=== PATIENT | male | born 1975 | race Caucasian/White ===

== ENCOUNTER 2016-03-13 10:03 | Emergency (ER) | payer OTHER ==
[2016-03-13] MEDS ORDERED: TORADOL PO ONE (10:33)
[2016-03-13 10:41] LABS: URINE CULTURE PL NEEDED? NO; URINE SOURCE VOIDED
--- NOTE | 2016-03-13 10:42 | PROVIDER DOCUMENTATION ---
HPI-Psychological Disorder - General Source: patient - History of Present Illness-Psych Onset/Duration: reports: unsure Timing: reports: still present, constant Severity: reports: moderate Situational problems related to:: reports: other Psychiatric Complaints: reports: angry, depressed, suicidal ideation Previous psych related hospitalizations?: Yes Patient arrived by:: private car Similar Symptoms Previously?: Yes Recently seen or treated by another doctor?: No - Suicidal Ideation Suicide Risk Assessment: depressed, prior attempt, organized plan, chronic illness Suicidal Attempt Method: reports: Other (run out of in traffic) <Xu Hooper - Last Filed: 03/13/16 12:59> <Emiliana Carreno - Last Filed: 03/13/16 14:52> - General Chief Complaint: Psych Stated Complaint: SUICIDAL THOUGHTS Time Seen by Provider: 03/13/16 10:14 Allergies/Adverse Reactions: Patient Allergies Allergy/AdvReac Type Severity Reaction Status Date / Time hydrocodone Allergy Severe ITCHING Verified 10/21/15 18:06 morphine Allergy Unknown Verified 10/21/15 18:06 haloperidol [From Haldol] AdvReac [place]aw Verified 10/21/15 18:06 haloperidol lactate * AdvReac [place] Verified 10/21/15 18:06 [From Haldol] Home Medications: Esomeprazole [Nexium] 40 mg PO DAILY 09/27/13 Metformin [Glucophage] 1,000 mg PO BID 09/21/14 Pregabalin [Lyrica] 600 mg PO BID 10/10/15 - History of Present Illness-Psych Nature of Presenting Problem: patient is a 40 yo M that presents wanting [facility] evaluation. patient is at a [facility] and is getting frustrated with the preacher because he is telling him what to do. he reports facility doesn't want him on his meds( patient can't remember them all). patient wants a bed, doesn't want to be d/c because he will walk in traffic, but doesn't want to go to [facility]. he wants to go to [facility]. He also c/o of abdominal pain and was dx with diverticulitis recently but denies any n/v/d or rectal bleeding. (Xu Hooper ) Review of Systems - Adult - REVIEW OF SYSTEMS - ADULT Constitutional: denies: chills, fever Eyes: denies: decreased vision, blurred vision, double vision Ears, Nose, Mouth & Throat: denies: ear pain, nose pain, throat pain, throat swelling Cardiovascular: denies: chest pain, palpitations, syncope Respiratory: denies: cough, shortness of breath, wheezing Gastrointestinal: reports: abdominal pain. denies: constipation, diarrhea, nausea, rectal bleeding, vomiting Genitourinary: reports: no symptoms reported Musculoskeletal: denies: back pain, joint pain, neck pain Integumentary: reports: no symptoms reported Neurological: reports: no symptoms reported Psychiatric: reports: depression, panic attacks Endocrine: reports: no symptoms reported Hematologic/Lymphatic: reports: no symptoms reported Allergic/Immunologic: reports: no symptoms reported All Other Systems: Reviewed and Negative <Xu Hooper - Last Filed: 03/13/16 12:59> Past History - Adult - PAST MEDICAL HISTORY-ADULT Review of Records: reports: Old Records Reviewed, Nursing Assessment Review, Medications Reviewed Respiratory: reports: asthma Gastrointestinal: reports: other (diverticulitis) Musculoskeletal: reports: orthopedic injury Psychiatric: reports: anxiety, bipolar, depression, psychiatric problems Endocrine/Immune: reports: Diabetes - PRIOR SURGERIES/PROCEDURES Surgical/Procedure History: reports: appendectomy, tonsillectomy, orthopedic ( extremity) - IMMUNIZATION STATUS Childhood Immunizations: See Nurse Assessment Flu Vaccine: See Nurse Assessment - FAMILY HISTORY Family History: reviewed, not pertinent - SOCIAL HISTORY Smoking: chew Living Situation: family <Xu Hooper - Last Filed: 03/13/16 12:59> Physical Exam-Psych Focus - Physical Exam-Psych Initial Vital Signs Reviewed: Yes Appearance: appropriate appearance, neat, no apparent destress, no memory impairment Neurological: alert, calm, oriented x 3 Behavior/Eye Contact/Speech: cooperative, good eye contact, normal speech Thoughts/Hallucinations: normal thought pattern, no apparent hallucination HENMT: normocephalic/atraumatic, moist mucous membranes, normal ENT inspection, TMs normal, pharynx normal Neck: full range of motion, normal inspection Respiratory: lungs clear, normal breath sounds, no respiratory distress, no accessory muscle use Cardiovascular: regular rate, rhythm, no edema, no murmur Abdominal Exam: normal bowel sounds, non tender, soft, no organomegaly, no pulsatile mass Back Exam: normal inspection, no vertebral tenderness Extremity: normal range of motion, non-tender, normal inspection, no pedal edema Integumentary: normal color, warm/dry <Xu Hooper - Last Filed: 03/13/16 12:59> Progress - EKG 1 Time of EKG reading by physician:: 12:18 EKG Read and Signed by:: Pascual Ross EKG Interpretation (*Must complete 3 of following elements*): Normal Rate: 92 Rhythm: NSR [place]: normal QRS: normal [place] Interval: normal ST Wave: normal <Xu Hooper - Last Filed: 03/13/16 12:59> - PSYCHIATRIC Medically clear for psych eval and/or transfer to [facility].: Yes - CONSULTS/PCP/HOSPITALIST Notification #1 *Consult/PCP/Hospitalist*: Dr. Bolivar, psychiatrist Time Discussed: 14:52 Reason/Comments: acdepted at Consult Disposition: Admit (to [facility]) <Emiliana Carreno - Last Filed: 03/13/16 14:52> - PLAN OF CARE/RESULTS Progress/Plan/Lab Results: plan of care-psych work up and eval (Xu Hooper) patient told us after tyring to give him toradol for pain that he had a GI bleed so he couldn't take that. He then wanted food, soda, and to chew tobacco. We told him he couls not do these things if he had a GI bleed. He then said he didn't really have a GI bleed, he just wanted something stronger than toradol. Vital Signs Temp Pulse Resp BP 03/13/16 10:18 98 F 102 H 18 128/62 hydrocodone Allergy (Severe, Verified 10/21/15 18:06) ITCHING morphine Allergy (Verified 10/21/15 18:06) Unknown haloperidol [From Haldol] Adverse Reaction (Verified 10/21/15 18:06) [place]ocks [place]aw haloperidol lactate * [From Haldol] Adverse Reaction (Verified 10/21/15 18:06) [place]aw Esomeprazole [Nexium] 40 mg PO DAILY 09/27/13 Metformin [Glucophage] 1,000 mg PO BID 09/21/14 Pregabalin [Lyrica] 600 mg PO BID 10/10/15 Laboratory 03/13/16 03/13/16 03/13/16 10:50 10:50 10:50 WBC 7.01 RBC 5.41 Hgb 15.0 Hct 45.1 MCV 83.4 MCH 27.7 MCHC 33.3 RDW Std Deviation 14.5 Plt Count 329 MPV 8.7 Immature Gran % (Auto) 0.6 H Neut % (Auto) 67.7 Lymph % (Auto) 19.0 L Mathews % (Auto) 9.0 Eos % (Auto) 3.4 Baso % (Auto) 0.3 Immature Gran # (Auto) 0.04 Neut # (Auto) 4.75 Lymph # (Auto) 1.33 Mathews # (Auto) 0.63 H Eos # (Auto) 0.24 Baso # (Auto) 0.02 Sodium Potassium Chloride Carbon Dioxide Anion Gap BUN Creatinine Estimated GFR/1.73 m2 BUN/Creatinine Ratio Glucose Calculated Osmolality Calcium Magnesium Total Bilirubin AST ALT Alkaline Phosphatase Total Protein Albumin Globulin Albumin/Globulin Ratio Urine Source Urine Color Urine Clarity Urine pH Ur Specific [place] Urine Protein Urine Ketones Urine Blood Urine Nitrite Urine Bilirubin Urine Urobilinogen Urine Microscopic RBC Urine WBC Ur Epithelial Cells Urine Glucose Salicylates < 3.00 L Urine Opiates Screen Ur Oxycodone Screen Urine Methadone Screen Acetaminophen < 1.2 L Ur Barbituates Screen Ur Tricyclics Screen Ur Phencyclidine Scrn Ur Amphetamines Screen U Methamphetamines Scrn Urine MDMA Screen U Benzodiazepines Scrn Urine Cocaine Screen U Cannabinoids Screen Plasma/Serum Ethyl Alc 03/13/16 03/13/16 03/13/16 10:50 10:30 10:30 WBC RBC Hgb Hct MCV MCH MCHC RDW Std Deviation Plt Count MPV Immature Gran % (Auto) Neut % (Auto) Lymph % (Auto) Mathews % (Auto) Eos % (Auto) Baso % (Auto) Immature Gran # (Auto) Neut # (Auto) Lymph # (Auto) Mathews # (Auto) Eos # (Auto) Baso # (Auto) Sodium 131 L Potassium 4.0 Chloride 96 L Carbon Dioxide 27 Anion Gap 9 BUN 9 Creatinine 0.9 Estimated GFR/1.73 m2 > 60 BUN/Creatinine Ratio 10 Glucose 217 H Calculated Osmolality 268 Calcium 9.6 Magnesium 1.6 Total Bilirubin 0.30 AST 31 ALT 49 H Alkaline Phosphatase 62 Total Protein 7.4 Albumin 4.3 Globulin 3.0 Albumin/Globulin Ratio 1.0 Urine Source VOIDED Urine Color YELLOW Urine Clarity CLEAR Urine pH 6.0 Ur Specific [place] 1.015 Urine Protein NEGATIVE Urine Ketones NEGATIVE Urine Blood NEGATIVE Urine Nitrite NEGATIVE Urine Bilirubin NEGATIVE Urine Urobilinogen NORMAL Urine Microscopic RBC Not Reportable Urine WBC NEGATIVE Ur Epithelial Cells <10 Urine Glucose NEGATIVE Salicylates Urine Opiates Screen NONE DETECTED Ur Oxycodone Screen NONE DETECTED Urine Methadone Screen PRESUMPTIVE POSITIVE A Acetaminophen Ur Barbituates Screen NONE DETECTED Ur Tricyclics Screen PRESUMPTIVE POSITIVE A Ur Phencyclidine Scrn NONE DETECTED Ur Amphetamines Screen NONE DETECTED U Methamphetamines Scrn NONE DETECTED Urine MDMA Screen NONE DETECTED U Benzodiazepines Scrn NONE DETECTED Urine Cocaine Screen NONE DETECTED U Cannabinoids Screen NONE DETECTED Plasma/Serum Ethyl Alc Orders Category Date Time Status ACETAMINOPHEN [TDM] Stat Lab 03/13/16 10:50 Completed CBC WITH DIFF [HEME] Stat Lab 03/13/16 10:50 Completed COMPREHENSIVE METABOLIC PANEL [CHEM] Stat Lab 03/13/16 10:50 Completed ETOH [ALCOHOL BLOOD] Stat Lab 03/13/16 10:50 Completed MAGNESIUM [CHEM] Stat Lab 03/13/16 10:50 Completed SALICYLATES [TDM] Stat Lab 03/13/16 10:[address] W/POSS RFLX CULT [URINALYSIS] Stat Lab 03/13/16 10:30 Completed URINE DRUG SCREEN PL Stat Lab 03/13/16 10:30 Completed VITAMIN B12 Stat Lab 03/13/16 10:50 Received Diphenhydramine [Benadryl] Med 03/13/16 13:48 Discontinued 50 mg IM NOW ONE Ketorolac [Toradol] Med 03/13/16 10:33 Discontinued 10 mg PO NOW ONE Lorazepam [Ativan] Med 03/13/16 13:48 Discontinued 2 mg IM NOW ONE Nicotine Patch [Nicoderm Patch] Med 03/13/16 13:39 Discontinued 21 mg .ROUTE .STK-MED ONE Tramadol [Ultram] Med 03/13/16 10:51 Discontinued 50 mg PO NOW ONE Water, Sterile Inj [Sterile Water Inj] Med 03/13/16 13:02 Discontinued 1.2 ml INJ NOW ONE Ziprasidone [Geodon] Med 03/13/16 13:02 Discontinued 20 mg IM NOW ONE EKG [EKG] Stat Ther 03/13/16 10:26 Draft (Emiliana Carreno) - PSYCHIATRIC Psych patient progress: DW called @ 1200 Accepted at [facility] (Emiliana Carreno) Departure <Xu Hooper - Last Filed: 03/13/16 12:59> - Departure Time of Disposition Order: 13:51 Certified Medical Emergency: Emergent <Emiliana Carreno - Last Filed: 03/13/16 14:52> - Departure DIAGNOSIS: Suicidal thoughts, Mood disorder Disposition: [facility]ATRIC H[facility] Condition: Stable Referrals: None,PCP [Primary Care Provider] - Attestation - Scribe Verification/Attestation Scribe:: Xu Hooper Acting as Scribe for:: Emiliana Carreno Scribe documention review:: This chart was documented by a scribe and accurately reflects the service the provider performed and the decisions made by the provider. - Physician/ Mid-level Attestation Patient care was provided by Mid-level provider (SIGNAL HELPER/PA):: Yes Mid-level provider:: Emiliana Carreno Mid-level documentation review:: The Mid-level provider documentation, treatment plan and medical decision making was reviewed by the physician who agrees with all treatment and medical decision making by the MLP. <Xu Hooper - Last Filed: 03/13/16 12:59> - Physician/ Mid-level Attestation Patient care was provided by Mid-level provider (SIGNAL HELPER/PA):: Yes Mid-level provider:: Emiliana Carreno Mid-level documentation review:: The Mid-level provider documentation, treatment plan and medical decision making was reviewed by the physician who agrees with all treatment and medical decision making by the MLP. <Emiliana Carreno - Last Filed: 03/13/16 14:52> Physician Attestation
[2016-03-13] MEDS ORDERED: ULTRAM PO ONE (10:51)
[2016-03-13 10:57] LABS: MANUAL DIFF NEEDED? NO
[2016-03-13 10:59] LABS: BASO% 0.3 % (0.0-0.8); EOS# 0.24 X1000 (0.0-0.7); EOS% 3.4 % (0.0-10.0); HEMATOCRIT 45.1 % (42.0-52.0); IMM GRAN# 0.04 X1000 (0.0-0.04); IMM GRAN% 0.6 % (0.0-0.5); LYMPH# 1.33 X1000 (1.2-3.4); MCH 27.7 PG (27-31); MCHC 33.3 g/dL (33-37); MCV 83.4 FL (81-99); MONO# 0.63 X1000 (0.11-0.59); MPV 8.7 FL (7.4-10.4); NEUT% 67.7 % (42.2-75.2); PLT 329 X1000 (130-400); RBC 5.41 XMIL (4.7-6.1)
[2016-03-13 11:14] LABS: BILIRUBIN URINE NEGATIVE (NEGATIVE); BLOOD URINE NEGATIVE (NEGATIVE); CLARITY CLEAR (CLEAR); COLOR YELLOW; GLUCOSE URINE NEGATIVE (NEGATIVE); LEUKOCYTES URINE NEGATIVE (NEGATIVE); NITRITE URINE NEGATIVE (NEGATIVE); PROTEIN URINE NEGATIVE (NEGATIVE); SP GRAVITY URINE 1.015; URINE EPITHELIAL CELLS <10 /HPF (<10); UROBILINOGEN URINE NORMAL
[2016-03-13 11:25] LABS: AGAP 9; ALBUMIN 4.3 g/dL (3.5-5.0); ALKALINE PHOSPHATASE 62 U/L (32-122); BUN 9 mg/dL (8-22); CALCIUM 9.6 mg/dL (8.8-10.2); CHLORIDE 96 mmol/L (98-107); COSMO 268; GOT 31 U/L (10-34); GPT 49 U/L (10-44); MAGNESIUM 1.6 mg/dL (1.5-2.7); SODIUM 131 mmol/L (136-145); TCO2 27 mmol/L (25-35); TOTAL PROTEIN 7.4 g/dL (6.3-8.3)
[2016-03-13 11:26] LABS: ACETAMINOPHEN < 1.2 ug/mL (10-30)
[2016-03-13 11:28] LABS: UR AMPHETAMINES QUAL NONE DETECTED (NONE DETECT); UR BARBITUATES QUAL NONE DETECTED (NONE DETECT); UR BENZODIAZEPIN QUAL NONE DETECTED (NONE DETECT)
[2016-03-13 11:29] LABS: UR COCAINE QUAL NONE DETECTED (NONE DETECT); UR MDMA QUAL NONE DETECTED (NONE DETECT)
[2016-03-13 11:30] LABS: UR CANNABINOIDS QUAL NONE DETECTED (NONE DETECT); UR METHADONE QUAL PRESUMPTIVE POSITIVE (NONE DETECT); UR METHAMPHETAMINE QUAL NONE DETECTED (NONE DETECT); UR OPIATES QUAL NONE DETECTED (NONE DETECT); UR OXYCODONE QUAL NONE DETECTED (NONE DETECT); UR PCP QUAL NONE DETECTED (NONE DETECT); UR TCA QUAL PRESUMPTIVE POSITIVE (NONE DETECT)
--- NOTE | 2016-03-13 12:33 | EKG Report ---
Test Performed on : 03/13/2016 12:18:18 PM Test Reason : med clear Blood Pressure : / mmHG Vent. Rate : 092 BPM Atrial Rate : 092 BPM P-R Int : 146 ms QRS Dur : 088 ms QT Int : 348 ms P-R-T Axes : 068 045 058 degrees QTc Int : 430 ms Normal sinus rhythm. Normal ECG When compared with ECG of 12-OCT-2015 03:35, No significant change was found Unconfirmed Result
[2016-03-13] MEDS ORDERED: STERILE WATER INJ. INJ ONE (13:02)
[2016-03-13] MEDS ORDERED: GEODON IM ONE (13:02)
[2016-03-13] MEDS ORDERED: NICODERM PATCH ONE (13:39)
[2016-03-13] MEDS ORDERED: ATIVAN IM ONE (13:48)
[2016-03-13] MEDS ORDERED: BENADRYL IM ONE (13:48)
[2016-03-13] MEDS ORDERED: NICODERM PATCH TD ONE (13:53)
[2016-03-13 15:29] VITALS: BP 115/79
== END 2016-03-13 15:29 ==
LOC: P.ED 10:03
DX: F39 Unspecified mood [affective] disorder (principal); R45.851 Suicidal ideations; R10.9 Unspecified abdominal pain; E11.9 Type 2 diabetes mellitus without complications; Z79.899 Other long term (current) drug therapy
CPT/HCPCS: 80053; 81001; 82607; 82948; 83735; 85025; 93005; 99285; G0480; J1200; J2060; J3486